=== PATIENT | female | born 1950 | race African-American/Black ===

== ENCOUNTER 2017-06-08 18:03 | Emergency (ER) | payer MEDICARE, BC ==
[~2017-06-08] VITALS: Ht 157.5 cm; Wt 86.0 kg
[2017-06-08] MEDS ORDERED: TRAMADOL 50MG TABLET PO ONE (22:30)
[2017-06-09 00:37] VITALS: BP 140/76
== END 2017-06-09 00:46 | disposition home or self-care (01) ==
LOC: ER 18:03
DX: S83.91XA Sprain of unspecified site of right knee, initial encounter (principal); M25.551 Pain in right hip; M25.552 Pain in left hip; I10 Essential (primary) hypertension; E78.00 Pure hypercholesterolemia, unspecified; E11.9 Type 2 diabetes mellitus without complications; Z88.8 Allergy status to other drugs, medicaments and biological substances; W01.0XXA Fall on same level from slipping, tripping and stumbling without subsequent striking against object, initial encounter; Y93.G3 Activity, cooking and baking; Y92.89 Other specified places as the place of occurrence of the external cause; Y99.8 Other external cause status
CPT/HCPCS: 73502; 73562; 82962; 99284; L1830